=== PATIENT | male | born 1980 | race Caucasian/White ===

== ENCOUNTER 2022-10-28 09:55 | Emergency (ER) | payer OTHER ==
[~2022-10-28] VITALS: Ht 177.8 cm; Wt 103.4 kg
[2022-10-28] MEDS ORDERED: TETRACAINE HCL 0.5% OPTH SOLN 4 ML BTL OP ONE (10:15)
[2022-10-28] MEDS ORDERED: FLUORESCEIN SOD(OPTH) 1 MG STRP OP ONE (10:15)
[2022-10-28] MEDS ORDERED: ERYTHROMYCIN (OPTH) 3.5 GM OINT OP ONE ×2 (10:30→10:36)
== END 2022-10-28 10:28 | disposition home or self-care (01) ==
LOC: FSED 10:00
DX: S05.01XA Injury of conjunctiva and corneal abrasion without foreign body, right eye, initial encounter (principal); X58.XXXA Exposure to other specified factors, initial encounter; K21.9 Gastro-esophageal reflux disease without esophagitis; F41.9 Anxiety disorder, unspecified
CPT/HCPCS: 99284